=== PATIENT | female | born 1990 | race Caucasian/White ===

== ENCOUNTER 2017-05-07 23:27 | Emergency (ER) | payer MEDICAID ==
[2014-05-15 12:19] VITALS: BMI 40.8
[~2017-05-07 23:27] MED LIST: DIABETA2.5 MG PO; FERROUS SULFAT325 MG PO; IBUPROFEN600 MG PO; KEFLEX250 MG PO; PERCOCET 5-3251 TAB PO
[2017-05-07 23:52] LABS: APPEARANCE CLEAR (CLEAR); COLOR YELLOW (YELLOW); SPECIFIC GRAVITY 1.015 (1.005-1.020)
[2017-05-07 23:53] LABS: BILIRUBIN NEGATIVE (NEGATIVE); GLUCOSE NEGATIVE (NEGATIVE); KETONE NEGATIVE (NEGATIVE); NITRITE NEGATIVE (NEGATIVE); PROTEIN NEGATIVE (NEGATIVE); UROBILINOGEN NORMAL (NORMAL)
[2017-05-08 00:34] LABS: HELICOBACTER PYLORI IGG NEGATIVE (NEGATIVE)
== END 2017-05-08 01:05 | disposition home or self-care (01) ==
LOC: D.ER 23:27
PROVIDERS: Emergency Medicine; Physician Assistant Medical
DX: S39.011A Strain of muscle, fascia and tendon of abdomen, initial encounter (principal); X58.XXXA Exposure to other specified factors, initial encounter; Y93.89 Activity, other specified; Y92.89 Other specified places as the place of occurrence of the external cause